=== PATIENT | male | born 1950 | race Two or more races ===

== ENCOUNTER 2024-08-12 21:04 | Emergency (ER) | payer OTHER ==
[~2024-08-12] VITALS: Ht 180.3 cm; Wt 72.6 kg
[2024-08-12 21:30] LABS: BASOPHILS % (AUTO) 0.3 % (0.0-2.0); DIFFERENTIAL COMMENT 1; EOSINOPHILS % (AUTO) 0.4 % (0.0-7.0); HEMATOCRIT 49.2 % (36.7-47.1); HEMOGLOBIN 16.4 g/dL (12.5-16.3); LYMPHOCYTES # (AUTO) 1.3 K/uL (0.8-4.8); LYMPHOCYTES % (AUTO) 13.5 % (20.5-51.5); MEAN CORPUSCULAR HEMOGLOBIN 27.8 uug (23.8-33.4); MEAN CORPUSCULAR HGB CONC 33 g/dL (32.5-36.3); MEAN CORPUSCULAR VOLUME 83.3 fL (73.0-96.2); MONOCYTES # (AUTO) 0.5 K/uL (0.1-1.30); MONOCYTES % (AUTO) 5.2 % (0.0-11.0); NEUTROPHILS % (AUTO) 80.6 % (38.5-71.5); PLATELET COUNT (AUTO) 185 K/uL (152-348); RED CELL DISTRIBUTION WIDTH 16.3 % (12.1-16.2); WHITE BLOOD COUNT (AUTO) 9.9 K/uL (3.6-10.2)
[2024-08-12 21:48] LABS: CALCIUM 9.9 mg/dL (8.5-10.1); CARBON DIOXIDE 23 mmol/L (21-32); CHLORIDE 94 mmol/L (98-107); CREATININE 1.6 mg/dL (0.6-1.3); GLUCOSE 293 mg/dL (74-106); POTASSIUM 4.6 mmol/L (3.5-5.1); SODIUM SERUM 132 mmol/L (136-145); UREA NITROGEN, BLOOD 31 mg/dL (7-18)
[2024-08-12 21:52] LABS: *BILIRUBIN,URIN NEGATIVE (NEGATIVE); *BLOOD, URINE 2+ (NEGATIVE); *CLARITY,URINE CLEAR (CLEAR); *COLOR,URINE YELLOW (YELLOW); *KETONES,URINE NEGATIVE (NEGATIVE); *PROTEIN,URINE 2+ (NEGATIVE); *UROBILINOGEN,URINE 0.2 E.U./dl (NORMAL); LEUKOCYTE ESTERASE ,URINE TRACE (NEGATIVE); NITRITE, URINE NEGATIVE (NEGATIVE); PH,URINE 6.5 (5.0-8.0)
[2024-08-12 21:53] LABS: UGLUCOSE 2+ (NEGATIVE); WBC,URINE 0-3 /HPF (0-3)
[2024-08-12 21:54] LABS: ALANINE AMINOTRANSFERASE 22 U/L (16-63); ALBUMIN 3.9 g/dL (3.4-5.0); ALKALINE PHOSPHATASE 85 U/L (50-136); ASPARTATE AMINOTRANSFERASE 16 U/L (15-37); BILIRUBIN,TOTAL 0.5 mg/dL (0.2-1.0); TOTAL PROTEIN, SERUM 9.4 g/dL (6.4-8.2)
[2024-08-12] MEDS ORDERED: LEVO500T90 PO (22:55)
[2024-08-12] MEDS ORDERED: levoFLOXacin 250 MG TABLET ONE (23:01)
[2024-08-12] MEDS: levoFLOXacin 250 MG TABLET PO ONE (23:14)
[2024-08-12 23:24] VITALS: BP 140/84; TEMP 98; O2SAT 99
== END 2024-08-12 23:25 | disposition home or self-care (01) ==
LOC: ER 21:04
DX: T83.098A Other mechanical complication of other urinary catheter, initial encounter (principal); N39.0 Urinary tract infection, site not specified; Z79.899 Other long term (current) drug therapy; Y92.89 Other specified places as the place of occurrence of the external cause
CPT/HCPCS: 36415; 51702; 85025; A4606; A4663